=== PATIENT | male | born 1980 | race Hispanic/Latino ===

== ENCOUNTER 2018-08-06 21:21 | Emergency (ER) | payer SELFPAY ==
[~2018-08-06] VITALS: Ht 165.1 cm; Wt 91.0 kg
[2018-08-06 22:30] VITALS: BP 106/66
== END 2018-08-06 22:34 | disposition home or self-care (01) | DRG 605 ==
LOC: ED 21:21
PROC: 0HQGXZZ Repair Left Hand Skin, External Approach (ICD-10-PCS; principal; 2018-08-06)
DX: S61.412A Laceration without foreign body of left hand, initial encounter (principal); S66.922A Laceration of unspecified muscle, fascia and tendon at wrist and hand level, left hand, initial encounter; W26.0XXA Contact with knife, initial encounter; Y93.89 Activity, other specified; Y92.009 Unspecified place in unspecified non-institutional (private) residence as the place of occurrence of the external cause

== ENCOUNTER 2020-06-29 01:10 | Emergency (ER) | payer SELFPAY ==
[~2020-06-29] VITALS: Ht 170.2 cm; Wt 100.0 kg
[~2020-06-29 01:10] MED LIST: METFORMIN500 MG PO
[2020-06-29 02:45] VITALS: BP 116/78
== END 2020-06-29 02:45 | disposition home or self-care (01) | DRG 605 ==
LOC: ED 01:10
PROC: 0HQFXZZ Repair Right Hand Skin, External Approach (ICD-10-PCS; principal; 2020-06-29)
DX: S61.411A Laceration without foreign body of right hand, initial encounter (principal); E11.9 Type 2 diabetes mellitus without complications; W26.8XXA Contact with other sharp object(s), not elsewhere classified, initial encounter; Y93.89 Activity, other specified; Y92.002 Bathroom of unspecified non-institutional (private) residence as the place of occurrence of the external cause; Z79.84 Long term (current) use of oral hypoglycemic drugs

== ENCOUNTER 2020-06-30 12:27 | Emergency (ER) | payer SELFPAY ==
[~2020-06-30] VITALS: Ht 170.2 cm; Wt 100.0 kg
[2020-06-30 13:25] VITALS: BP 128/71
== END 2020-06-30 13:25 | disposition home or self-care (01) | DRG 950 ==
LOC: ED 12:27
DX: S61.411D Laceration without foreign body of right hand, subsequent encounter (principal); E11.9 Type 2 diabetes mellitus without complications; Z79.84 Long term (current) use of oral hypoglycemic drugs; X58.XXXD Exposure to other specified factors, subsequent encounter

== ENCOUNTER 2020-12-02 14:40 | Emergency (ER) | payer SELFPAY ==
[~2020-12-02] VITALS: Ht 170.2 cm; Wt 100.0 kg
[2020-12-02] MEDS ORDERED: METFORMIN500 M2 PO (15:06)
[2020-12-02] MEDS ORDERED: VOLTAREN1%GEL TOP (17:03)
== END 2020-12-02 17:22 | disposition home or self-care (01) | DRG 552 ==
LOC: ED 14:40
DX: M54.6 Pain in thoracic spine (principal); M54.5 Low back pain; E11.9 Type 2 diabetes mellitus without complications; Z79.84 Long term (current) use of oral hypoglycemic drugs

== ENCOUNTER 2021-11-05 20:39 | Emergency (ER) | payer SELFPAY ==
[2021-11-05] VITALS (7 sets, daily range): BP systolic 113–138; BP diastolic 65–84
[~2021-11-05] VITALS: Ht 170.2 cm; Wt 118.2 kg
[~2021-11-05 20:39] MED LIST changes: +METFORMIN500 M2 PO; +VOLTAREN1%GEL TOP
[2021-11-05] MEDS ORDERED: METFORMIN HCL500 M1 PO (21:13)
[2021-11-05 21:18] LABS: URINE BILIRUBIN - DIPSTICK NEGATIVE (NEGATIVE); URINE BLOOD DIPSTICK MODERATE (NEGATIVE); URINE COLOR YELLOW; URINE GLUCOSE - DIPSTICK NEGATIVE (NEGATIVE); URINE KETONE NEGATIVE (NEGATIVE); URINE LEUK ESTERASE NEGATIVE (NEGATIVE); URINE PROTEIN - DIPSTICK NEGATIVE (NEG-TRACE); URINE SPECIFIC GRAVITY 1.015
[2021-11-05 21:23] LABS: URINE NITRITE - DIPSTICK NEGATIVE (Negative)
[2021-11-05 21:30] LABS: URINE SQUAMOUS EPITHELIAL CELL FEW EPI/hpf (0-FEW)
[2021-11-05] MEDS ORDERED: NAPROXEN500 MG PO (23:27)
[2021-11-05] MEDS ORDERED: PAXLOVID PO (23:27)
== END 2021-11-05 23:41 | disposition home or self-care (01) | DRG 393 ==
LOC: ED 20:39
PROVIDERS: Emergency Medicine
DX: K40.90 Unilateral inguinal hernia, without obstruction or gangrene, not specified as recurrent (principal); U07.1 COVID-19; J02.9 Acute pharyngitis, unspecified; I10 Essential (primary) hypertension; E11.9 Type 2 diabetes mellitus without complications; E78.5 Hyperlipidemia, unspecified; Z79.84 Long term (current) use of oral hypoglycemic drugs

== ENCOUNTER 2021-11-09 02:00 | Emergency (ER) | payer SELFPAY ==
[~2021-11-09] VITALS: Ht 170.2 cm; Wt 118.0 kg
[~2021-11-09 02:00] MED LIST changes: +METFORMIN HCL500 M1 PO; +NAPROXEN500 MG PO; +PAXLOVID PO
[2021-11-09 02:36] LABS: HEMATOCRIT 44.4 % (39.0-50.0); HEMOGLOBIN 14.5 g/dl (14.0-18.0); IMMATURE GRANULOCYTES 0.8 % (0.0-5.0); MEAN CELL VOLUME 88.1 fL CALC (80.0-100.0); MEAN CORPUSCULAR HGB 28.8 pG CALC (26.0-32.0); MEAN CORPUSCULAR HGB CONC 32.7 g/dL CAL (32.0-36.0); NEUT# 13.38 thou/uL (1.82-7.42); RED BLOOD COUNT 5.04 mill/uL (4.70-6.10); RED CELL DISTRI WIDTH 13.1 % (11.5-15.5)
[2021-11-09 02:39] VITALS: BP 132/81
[2021-11-09 02:50] LABS: ALBUMIN 4.3 g/dL (3.2-5.0); ALKALINE PHOSPHATASE 85 u/l (38-126); ANION GAP 12 (6-22 (CALC)); BILIRUBIN, TOTAL 0.9 mg/dL (0.0-1.4); BUN 17 mg/dL (9-20); BUN/CREATININE RATIO 20 (12-20 (CALC)); CARBON DIOXIDE 29 mmol/l (22-30); CHLORIDE 98 mmol/l (95-108); CREATININE 0.8 mg/dL (0.7-1.3); GFR FOR AFR.AMER. > 60 ML/MIN (>=60 (CALC)); GFR OTHER RACES > 60 ML/MIN (>=60 (CALC)); POTASSIUM 3.9 mmol/l (3.5-5.1); SGOT/AST 19 u/l (17-59); SODIUM 135 mmol/l (137-146); TOTAL PROTEIN 7.4 g/dL (6.3-8.2)
[2021-11-09] MEDS ORDERED: PERCOCET 5/325M1 TAB PO (03:25)
[2021-11-09 04:08] VITALS: BP 120/76
[2021-11-09 04:10] VITALS: BP 120/76
== END 2021-11-09 04:12 | disposition home or self-care (01) | DRG 730 ==
LOC: ED 02:00
PROVIDERS: Emergency Medicine
DX: N43.2 Other hydrocele (principal); I10 Essential (primary) hypertension; E78.5 Hyperlipidemia, unspecified; Z86.16 Personal history of COVID-19; Z79.84 Long term (current) use of oral hypoglycemic drugs